=== PATIENT | male | born 1990 | race Caucasian/White ===

== ENCOUNTER 2019-09-15 11:25 | Outpatient (CLI) | payer OTHER, SELFPAY ==
--- NOTE | ~2019-09-15 | US_ITS ---
EXAMINATION: US right upper quadrant DATE: 09/15/2019 13:11 INDICATION: Right upper quadrant pain TECHNIQUE: Multiple grayscale and Doppler ultrasound images of the abdomen were obtained. COMPARISON: None available FINDINGS: Bowel gas obscures visualization of the pancreas. The liver demonstrates increased echogeni city, heterogenous echotexture, and decreased through transmission. No surface nodularity. Normal hep atopetal flow in the main portal vein. The gallbladder is normal with no abnormal wall thickening, pe richolecystic fluid or stones. The normal common bile duct measures 3 mm. There was no sonographic Mu rphy sign. IMPRESSION: 1. Normal sonographic study of the gallbladder. 2. Diffuse hepatic steatosis. Reviewed, dictated and finalized at location A.
[2019-09-15 12:56] LABS: Alanine Aminotransferase 53 U/L (4-50); Albumin Level 4.9 g/dL (3.5-5.1); Alkaline Phosphatase 73 U/L (38-126); Amylase 88 U/L (30-110); Aspartate Amino Transferase 57 U/L (17-59); Bilirubin Indirect 0.6 mg/dL (0-1.1); Bilirubin,Total 0.5 mg/dL (0.2-1.3); Lipase 143 U/L (23-300)
[2019-09-15 14:11] LABS: Free T4 Free Thyroxine 1.12 ng/mL (0.78-2.19)
== END 2019-09-15 11:26 | disposition home or self-care (01) ==
PROVIDERS: Visit Provider Internal Medicine Gastroenterology
DX: R10.84 Generalized abdominal pain (principal); R12 Heartburn; R14.0 Abdominal distension (gaseous); R11.0 Nausea; R94.5 Abnormal results of liver function studies; R19.4 Change in bowel habit; K92.2 Gastrointestinal hemorrhage, unspecified; K76.0 Fatty (change of) liver, not elsewhere classified
CPT/HCPCS: 36415; 76705; 82040; 82150; 82247; 82248; 83690; 84075; 84439; 84443; 84450; 84460

== ENCOUNTER 2024-02-16 13:20 | Emergency (ER) | payer OTHER, SELFPAY ==
[2024-02-16 13:36] VITALS: BP 162/92; PULSE 106; RESP 17; TEMP 36.5; O2SAT 98
[2024-02-16 16:34] LABS: Influenza A QL RT-PCR Negative (Negative); Influenza B QL RT-PCR Negative (Negative); RSV RNA, RT-PCR Negative (Negative); SARS-CoV-2 RNA PCR Negative (Negative)
--- NOTE | 2024-02-16 17:38 | ED_ITS ---
HPI - URI/Sore Throat General Chief Complaint: Upper Respiratory Infection Stated Complaint: blood in both ears Time Seen by Provider: 02/16/24 17:17 Source: patient Mode of arrival: ambulatory Limitations: no limitations History of Present Illness HPI Narrative: Patient presents to the emergency department for cold symptoms present over the last several weeks. Reporting sinus pain and pressure in his ears. Reports subjective fevers. Reports rhinorrhea and congestion. Reports he thought he saw blood in his external auditory canals. Related Data Allergies Allergy/AdvReac Type Severity Reaction Status Date / Time No Known Allergies Allergy Unverified 12/26/10 16:21 Review of Systems Review of Systems: CONSTITUTIONAL: Reports subjective fever ENT: Reports rhinorrhea, congestion, and otalgia. RESPIRATORY: Denies cough All systems reviewed & are unremarkable except as noted in HPI and below PMFSH Past Medical History Medical History (Updated 02/16/24 @ 17:57 by Amber Senior PA-C) History of gout Social History Social History (Updated 02/16/24 @ 17:55 by Amber Senior PA-C) Substance use: never Exam Narrative: GENERAL: Well-appearing, well-nourished, and in no acute distress. HEAD: Normocephalic, atraumatic. EYES: EOMI. ENT: Nares clear, no rhinorrhea or epistaxis. Mucous membranes moist. Oropharynx without tonsillar hypertrophy exudate or other lesions. Bilateral TMs pearly saavedra non-bulging. Right external auditory canal with some cerumen present. Tender to palpation of frontal sinuses NECK: Supple. No adenopathy or masses. CHEST: Clear to auscultation. No respiratory distress. No wheezes rales or rhonchi HEART: Regular rate and rhythm. No murmur heard. Normal peripheral pulses. EXTREMITIES: Normal range of motion. No edema. SKIN: Warm, dry, no rash. NEURO: No focal deficits. Alert and oriented x3. PSYCH: Normal mood and affect Course Course Emergency Course: Patient agrees with plan of care Vital Signs Vital signs: Vital Signs Temperature 97.7 F 02/16/24 13:36 Pulse Rate 106 H 02/16/24 13:36 Respiratory Rate 17 02/16/24 13:36 Blood Pressure 162/92 H 02/16/24 13:36 Pulse Oximetry 98 02/16/24 13:36 Temperature 97.7 F 02/16/24 13:36 Pulse Rate 106 H 02/16/24 13:36 Respiratory Rate 17 02/16/24 13:36 Blood Pressure 162/92 H 02/16/24 13:36 Pulse Oximetry 98 02/16/24 13:36 Oxygen Delivery Room Air 02/16/24 15:30 MDM - URI/Sore Throat MDM Narrative Medical decision making narrative: Patient presents to the emergency department for cold symptoms present over the last several weeks. Reporting sinus pain and pressure in his ears. He is afebr ile and nontoxic appearing. Influenza, RSV and COVID screens are negative. Lungs are clear on exam. Oxygen saturation is normal on room air. Bilateral external auditory canals and TMs are normal. Patient will be started on oral ABX for treatment of sinusitis. He is to follow up with his primary provider. He was given warnings to return to the ER Differential Diagnosis Differential diagnosis: Likely upper respiratory infection, otitis media, sinusitis, viral infection, bronchitis and influenza Lab Data Attestation: I reviewed the patient's lab results. Labs: Lab Results 02/16/24 Range/Units 15:55 Influenza A (RT-PCR) Negative (Negative) Influenza B (RT-PCR) Negative (Negative) RSV (RT-PCR) Negative (Negative) SARS-CoV-2 RNA (RT-PCR) Negative (Negative) Critical Care Time Critical Care Time Critical Care Time: No Discharge Plan Discharge Clinical Impression: Acute sinusitis, Cerumen impaction Patient Disposition: Home, Self-Care Condition: Stable Instructions: Antibiotic Form, Sinusitis (ED) Additional Instructions: Return to the emergency department for worsening symptoms, or any other concerns Remain well-hydrated, get plenty of rest. Take Tylenol or Motrin [id number] for pain as needed. Flonase for nasal congestion. Zyrtec for runny nose. Take oral antibiotic as prescribed Follow up with primary care doctor Prescriptions: New amoxicillin-pot clavulanate 875-125 mg tablet 1 tablet PO Q12H 5 Days Qty: 10 0RF Follow-up/Referrals: Jyotsna David MD [Primary Care Provider] -
== END 2024-02-17 03:48 | disposition home or self-care (01) ==
PROVIDERS: Emergency Medicine; Emergency Provider Physician Assistant; PCP Family Medicine
DX: J01.90 Acute sinusitis, unspecified (principal); H61.21 Impacted cerumen, right ear; Z20.822 Contact with and (suspected) exposure to COVID-19
CPT/HCPCS: 87637; 99283

== ENCOUNTER 2024-02-24 14:46 | Outpatient (CLI) | payer OTHER, SELFPAY ==
[2024-02-24 15:18] LABS: Basophils Absolute Auto 0.1 K/mm3 (0.0-0.1); Basophils Percent Auto 0.8 % (0.2-1.2); Eosinophils Absolute Auto 0.2 K/mm3 (0-0.3); Eosinophils Percent Auto 2.3 % (0-4.4); Hematocrit 43.8 % (42.0-52.0); Hemoglobin 15.6 g/dL (14.0-18.0); Immature Granulocyte Absolute 0.05 K/mm3 (0.00-0.031); Immature Granulocyte Percent A 0.5 % (0-0.5); Lymphocytes Absolute Auto 1.82 K/mm3 (0.9-3.2); Mean Corpuscular HGB Conc 35.6 g/dl (32-36); Mean Corpuscular Volume 89.9 fl (80-100); Mean Platelet Volume 9.7 fl (7.4-10.4); Monocytes Absolute Auto 0.9 K/mm3 (0.1-0.6); Monocytes Percent Auto 8.5 % (2.6-8.5); Neutrophils Absolute Auto 7.1 K/mm3 (1.3-6.7); Neutrophils Percent Auto 69.9 % (45.5-73.1); Platelet Count Result 273 k/mm3 (150-375); Red Blood Count 4.87 M/mm3 (4.6-6.20); Red Cell Distribution Width 12.2 % (11.5-14.5); White Blood Count 10.1 K/mm3 (4.5-10.0)
[2024-02-24 15:27] LABS: Alanine Aminotransferase 38 U/L (6-50); Albumin Level 5.1 g/dL (3.5-5.1); Alkaline Phosphatase 57 U/L (38-126); Anion Gap 8 mmol/L (4-12); Aspartate Amino Transferase 36 U/L (17-59); Bilirubin,Total 0.5 mg/dL (0.2-1.3); Blood Urea Nitrogen 17 mg/dL (9-20); Calcium 9.7 mg/dL (8.4-10.2); Carbon Dioxide 28 mmol/L (22-30); Chloride 102 mmol/L (98-107); Cholesterol 281 mg/dL (0-200); Estimated Glomerular Filt Rate > 60; Glucose 116 mg/dL (65-110); HDL Direct 48 mg/dL; Potassium 4.1 mmol/L (3.4-5.0); Sodium 138 mmol/L (137-145); Triglycerides 305 mg/dL (<150); Uric Acid 7.8 mg/dL (3.5-8.5)
[2024-02-24 15:38] LABS: LDL Cholesterol Direct 181 mg/dL
== END 2024-02-24 14:47 | disposition home or self-care (01) ==
LOC: ANHLAB 14:47
PROVIDERS: PCP Family Medicine; Visit Provider Family Medicine
DX: M10.9 Gout, unspecified (principal); R53.83 Other fatigue; E78.2 Mixed hyperlipidemia; E11.9 Type 2 diabetes mellitus without complications
CPT/HCPCS: 36415; 80053; 80061; 83036; 84443; 84550; 85025

== ENCOUNTER 2025-02-24 09:15 | Outpatient (CLI) | payer OTHER, SELFPAY ==
--- OUTSIDE RECORDS SUMMARY | 2025-02-24 09:59 | XMS_ITS | Clinical Summary ---
Author Organization [facility] Address [address] [place] [address] Care Team Providers Care Heel Molder Name Role Phone Unavailable Primary Care Provider Unavailabl e Source Comments [facility],non-owned Affiliates and Associated Physician Practices is amultiple site organization consisting of ambulatory clinics and hospital sitesin [place], [place], [place] and [place]. This disclosure is being madepursuant to the Care Everywhere program and may not contain all information available regarding this patient. 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 Gender Identity Male 01/18/2025 3:14 PM CDT Sexual Orientation Straight 01/18/2025 3: 14 PM CDT Plan of Treatment Health Maintenance Due Date Last Done Comments HIV SCREENING 10/08/2003 HEPATITIS C SCREENING 10/03/2006 DTAP/TDAP/TD VACCINES (1 - Tdap) 10/08/2007 HEPATITIS B VACCINE (1 of 3 - 19+ 3-dose series) 10/08/2007 HPV VACCINE (1 - 3-dose SCDM series) 10/08/2015 DEPRESSION SCREENING 03/24/2024 COVID-19 VACCINE (1 - 2024-2 6 season) 2024 INFLUENZA VACCINE (#1) 2024 ZOSTER VACCINE (1 of 2) 2038 HIB VACCINE Aged Out No longer eligi ble based on patient's age to complete this topic MENINGOCOCCAL (Group B) VACC INE SHARED DECISION-MAKING Aged Out No longer eligibl e based on patient's age to complete this topic MENINGOCOCCAL GROUPS A/C/Y/W VACCINE Aged Out No longer eligible b ased on patient's age to complete this topic PNEUMOCOCCAL VACCINE Aged Out No long er eligible based on patient's age to complete this topic Insurance [facility]
--- OUTSIDE RECORDS SUMMARY | 2025-02-24 09:59 | XMS_ITS | Clinical Summary ---
Author Organization [facility] Address [address] [place] [id number] Care Team Providers Care Commercial Escrow Assistant Name Role Phone BartLon vasquez Antonette HOU Primary Care Provider [phone] Allergies No known active allergies Medications hydroCHLOROthia zide 12.5 MG capsule Take 2 capsules (25 mg total) by mouth every morning. 30 capsule 06/25/2019 Active Family History Medical History Relation Comments Diabetes Father Heart Disease Father Hypertension Father Stroke Father No Known Problems Mother Relation Status Comments Father Mother Alive Social History Tobacco Use Types Packs/Day Years Used Date Smoking Tobacco: Former Smokeless Tobacco: Never Alcohol Use Standard Drinks/Week Comments Yes 0 (1 standard drink = 0.6 oz pur e alcohol) RARE Sex and Gender Information Value Date Recorded Sex Assigned at Not on file Legal Sex Male 4:11 PM CDT Gender Identity Not on file Sexual Orientation Not on file Last Filed Vital Signs Vital Sign Reading Time Taken Comments Blood Pressure 160/122 06/25/2019 5:50 PM CDT Pulse 111 06/25/2019 5:50 PM CDT Temperature 36.6 C (97.8 F) 06/25/2019 4:16 PM CDT Respiratory Rate 18 06/25/2019 5:50 PM CDT Oxygen Saturation 96% 06/25/2019 5:50 PM CDT Inhaled Oxygen Concentration - - Weight 133.8 kg (295 lb) 06/25/2019 4:16 PM CDT Height 167.6 cm (5' 6) 06/25/2019 4:16 PM CDT Body Mass Index 47.61 06/25/2019 4:16 PM CDT Plan of Treatment Health Maintenance Due Date Last Done Comments Annual Physical 10/08/1991 Hepatitis B Vaccines (4 of 4 - 4-dose series) 02/16/1998 01/27/1998, 12/22/1997, 07/05/1997 DTaP, Tdap and Td Vaccines (6 - Tdap) 11/04/2002 11/03/2002, 06/28/1993, 04/27/1990, Additional history exists Hepatitis C 2006 HPV Vaccines (1 - 3-dose SCDM series) 10/08/2015 COVID-19 Vaccine ( season) 2024 Influenza Adult (#1) 2024 04/18/2015 Hepatitis A Vaccines Aged Out No long er eligible based on patient's age to complete this topic Meningococcal B Vaccine Aged Out No l onger eligible based on patient's age to complete this topic Meningococcal Vaccine Aged Out No treasure elizabeth eligible based on patient's age to complete this topic Pneumococcal Vaccine: Pediatrics (0 to 5 Years) and At-Risk Patients (6 to 49 Years) Aged Out No longer eligible based on patient's age to complete this topic RSV Immunizations Under 20 Months Aged Out No longer eligible based on patient's age to complete this topic Insurance [employer] Care Teams Commercial Escrow Assistant Relationship Specialty Start Date End Date Lon Arriaga DO [address] [address] PCP - General FAMILY PRACTICE 03/27/21
--- OUTSIDE RECORDS SUMMARY | 2025-02-24 09:59 | XMS_ITS | Encounter Summary ---
Author Organization [facility] Address [address] [place] [address] Care Team Providers Care Graphic Design Teacher Name Role Phone Unavailable Primary Care Provider Unavailabl e Encounter Details Date Type Department Care Team (Late st Contact Info) Description 08/01/2020 Lab Requisition [facility] 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 Gender Identity Male 01/18/2025 3:14 PM CDT Sexual Orientation Straight 01/18/2025 3: 14 PM CDT documented as of this encounter Plan of Treatment Not on file documented as of this encounter Procedures Procedure Name Priority Date/Time Associated Diagnosis Comments DERMATOPATHOLOGY Routine 07/31/2020 3:33 AM CDT documented in this encounter Results * DERMATOPATHOLOGY (07/31/2020 3:33 AM CDT) Case Report Dermatopathology Report Case: [id number] Authorizing Provider: Gemma Horner MD Collected: 07/31/2020 03:33 AM Ordering Location: [facility] Received: 08/01/2020 11:30 AM Pathologist: Tory Chatterjee MD Specimen: Skin, left dorsal back 11:33 AM CDT DERMATOPATHOLOGY LABORATORY Final Diagnosis Specimen A. SKIN, left dorsal back: COMPOUND MELANOCYTIC NEVUS, IRRITATED (D22.5) APPROXIMATES DEEP MARGIN 11:33 AM CDT DERMATOPATHOLOGY LABORATORY at 1133 CDT Clinical History Nevi. Check margins. 11:33 AM CDT DERMATOPATHOLOGY LABORATORY Gross Description Specimen A: Received is one formalin filled container labeled with the patient's name and designated left dorsal back. The specimen consists of a shave biopsy measuring [id number]. Jar 0. 11:33 AM CDT DERMATOPATHOLOGY LABORATORY Microscopic Description Specimen A. SKIN, left dorsal back: There is melanin pigment in the stratum corneum. There are nests of melanocytes at the dermal-epidermal junction and within the dermis. MART-1/Melan-A immunohistochemical stain highlights the melanocytes as above. This lesion approximates the deep margin of the specimen. 11:33 AM CDT DERMATOPATHOLOGY LABORATORY Disclaimer An external and internal positive and negative controls are appropriate for the histochemical, immunohistochemical and immunofluorescence stain(s) in this case (if any), except where stated explicitly. The performance characteristics of the stain(s) cited in this report were developed and its performance characteristic determined by the Dermatopathology Laboratory at [facility], directed by Dr. Eliza Rueda. These tests need not be, and therefore are not, approved by the [place] Food and Drug Administration. The tests are used for clinical purposes. Billing Codes Specimen Charges Stain Charges 01401 1 80058 1 11:33 AM CDT DERMATOPATHOLOGY LABORATORY Embedded Images 11:33 AM CDT DERMATOPATHOLOGY LABORATORY Pathology/Cytolo gy TISSUE SPECIMEN FROM SKIN / Unknown 07/31/2020 3:33 AM CDT 08/01/2020 11:30 AM CDT Gemma Horner MD LAB - PATHOLOGY/CYTOLOGY ORD ERABLES Final Result DERMATOPATHOLOGY LABORATORY [facility] - Department of Dermatology [address], [address] [phone] documented in this encounter Visit Diagnoses Not on filedocumented in this encounter
[2025-02-24 10:17] LABS: Hematocrit 43.4 % (42.0-52.0); Hemoglobin 14.9 g/dL (14.0-18.0); Immature Granulocyte Percent A 0.5 % (0-0.5); Lymphocytes Absolute Auto 1.53 K/mm3 (0.9-3.2); Mean Corpuscular HGB Conc 34.3 g/dl (32-36); Mean Corpuscular Hemoglobin 31.4 pg (26-34); Mean Corpuscular Volume 91.6 fl (80-100); Nucleated Red Blood Cells Absolute Auto 0.000 K/mm3 (0.0-0.012); Nucleated Red Blood Cells Perc 0.0 % (0.0-0.2); Platelet Count Result 259 k/mm3 (150-375); Red Blood Count 4.74 M/mm3 (4.6-6.20); White Blood Count 5.9 K/mm3 (4.5-10.0)
[2025-02-24 10:26] LABS: Hemoglobin A1C 5.4 % (<5.7)
[2025-02-24 10:30] LABS: Alanine Aminotransferase 40 U/L (6-50); Albumin Level 5.0 g/dL (3.5-5.1); Alkaline Phosphatase 51 U/L (38-126); Anion Gap 9 mmol/L (4-12); Aspartate Amino Transferase 33 U/L (17-59); Bilirubin,Total 0.7 mg/dL (0.2-1.3); Blood Urea Nitrogen 29 mg/dL (9-20); Calcium 10.1 mg/dL (8.4-10.2); Carbon Dioxide 27 mmol/L (22-30); Chloride 98 mmol/L (98-107); Cholesterol 224 mg/dL (0-200); Estimated Glomerular Filt Rate > 60; Glucose 124 mg/dL (65-110); HDL Direct 33 mg/dL; Potassium 4.5 mmol/L (3.4-5.0); Sodium 134 mmol/L (137-145); Total Protein 8.1 g/dL (6.3-8.2); Triglycerides 124 mg/dL (<150); Uric Acid 6.5 mg/dL (3.5-8.5)
[2025-02-24 10:45] LABS: MALB Creatinine Ratio < 7.6 mg/g (0-30)
[2025-02-24 10:46] LABS: Free T4 Free Thyroxine 1.06 ng/dL (0.78-2.19)
[2025-02-24 11:06] LABS: Thyroid Stimulating Hormone 1.840 uIU/mL (0.465-4.680)
== END 2025-02-24 09:16 | disposition home or self-care (01) ==
LOC: ANHLAB 09:17
PROVIDERS: PCP Student in an Organized Health Care Education/Training Program; Visit Provider Student in an Organized Health Care Education/Training Program
DX: E78.5 Hyperlipidemia, unspecified (principal); I10 Essential (primary) hypertension; E11.9 Type 2 diabetes mellitus without complications; R53.83 Other fatigue; M10.9 Gout, unspecified
CPT/HCPCS: 36415; 80053; 80061; 82043; 83036; 84439; 84443; 84550; 85025